=== PATIENT | female | born 1955 | race Caucasian/White ===

== ENCOUNTER 2020-11-15 05:52 | Day surgery (SDC) | payer BC ==
[2020-11-15] MEDS ORDERED: Lactated Ringers 1,000 ML IV SCH (06:30)
[2020-11-15] MEDS ORDERED: DIPRIVAN 200 MG/20 ML IV ONE ×3 (07:32→07:55)
[2020-11-15 08:46] VITALS: PULSE 61
[2020-11-15 09:19] VITALS: BP 121/51; O2SAT 98
--- NOTE | 2020-11-15 10:36 | OP ---
SURGERY DATE: 11/15/2020 SURGERY TIME: 729 PREOPERATIVE DIAGNOSIS: 1. PERSISTENT GASTROESOPHAGEAL REFLUX DISEASE. 2. SCREENING COLON. POSTOPERATIVE DIAGNOSIS: 1. GASTRIC POLYPS. 2. RECTAL POLYPS X 2. PROCEDURE: 1. EGD. 2. Colonoscopy. SPECIMENS: 1. Two cold forceps gastric polypectomies. 2. One hot forceps rectal polypectomy and one cold forceps rectal polypectomy. ESTIMATED BLOOD LOSS: Minimal. SURGEON: Dr. Fabio Ibrahim. ANESTHESIA: MAC by Noah Mathis CRNA. DESCRIPTION OF PROCEDURE: After informed written consent was obtained, the patient was taken to the endoscopy suite. She was placed in the left lateral decubitus position. A bite block was inserted. Anesthesia was titrated to the desired level of consciousness. The endoscope was inserted in the posterior oropharynx. Under direct visualization, the esophagus was easily traversed. The gastroesophageal junction had a normal mucosal appearance free of any lesions or defects. Upon entry into the stomach, there was normal rugated gastric mucosa with multiple fundic gland polyps. The pylorus was traversed and the 1st and 2nd portions of the duodenum were within normal limits. No ulcerations or abnormalities. Two account development representative fundic gland polyps were sampled with cold forceps and sent for pathology. There was no active bleeding following removal. The remainder of exam was within normal limits upon withdrawal. The scope was removed and the scopes were switched. Digital rectal exam showed normal sphincter tone and no internal lesions. The scope was inserted in the rectum and sequentially the entire colonic mucosa was traversed. The level of the cecum was reached and verified with direct visualization of the ileocecal valve. Upon withdrawal, careful mucosal inspection was performed. There was liquid stool throughout multiple portions of the colon limiting view somewhat. Prep was fairly poor. Prior to withdrawal, there were 2 sessile polyps, one very small in the rectal region which was grasped with the forceps and removed in its entirety. One slightly larger seen on retroflexion in the distal rectal area which was grasped with the forceps, cauterized with electrocautery, and removed. The entire lesion appeared to be removed. Was hemostatic following removal. The scope was removed. The patient was transferred to the recovery room in excellent condition. I have advised she hold her aspirin for the next week and follow-up in a week for pathology reports.
== END 2020-11-15 09:15 | disposition home or self-care (01) ==
LOC: SDC 05:52
PROVIDERS: ATTEND Family Medicine
DX: Z12.11 Encounter for screening for malignant neoplasm of colon (principal); K21.9 Gastro-esophageal reflux disease without esophagitis; K31.7 Polyp of stomach and duodenum; D12.8 Benign neoplasm of rectum
CPT/HCPCS: 88305; J2704

== ENCOUNTER 2024-01-28 17:00 | Emergency (ER) | payer MEDICARE ==
[2024-01-28 18:31] VITALS: PULSE 54; TEMP 97.6; O2SAT 99
--- NOTE | 2024-01-28 19:02 | ERPHSYRPT ---
- History of Present Illness Time Seen by Provider: 01/28/24 17:03 Source: patient Exam Limitations: no limitations Patient Subjective Stated Complaint: pt cut her 3rd finger of her left hand on the fingerprint Triage Nursing Assessment: Pt brought to the ER by her , hypertensive, bradycardic, rates pain as 1/10, 1 cm laceration to the distal end of the 3rd finger of the left hand, actively bleeding, pulses normal, skin n/w/d, denies any other injuries Physician History: 68 years old female with a history of hypertension, diabetes mellitus [id number] presented in the ER with a laceration to the left third digit distal phalanx prior to arrival while doing dishes and came across a sharp edge. Patient reports minimal pain but oozing of blood without spurting. No numbness or tingling distally. Unsure about tetanus status. 1.25 cm superficial laceration left third digit distal phalanx palmar aspect just distal to distal interphalangeal joint. Minimal oozing. Distal neurovascular intact. No injury to the nail. Do not think patient needs imaging as it was a superficial cut and no bony injury. Tetanus is updated Laceration is repaired with 3 interrupted sutures. Tube gauze dressing applied. Recommended Tylenol and outpatient follow-up. Discussed wound care and signs symptoms of worsening needing return to ER which she seems understanding. Stable for discharge. Allergies/Adverse Reactions: dicyclomine Allergy (Severe, Verified 01/28/24 18:31) Rash tetracycline Allergy (Severe, Verified 01/28/24 18:31) Rash Home Medications: Carvedilol 3.125 mg [Coreg 3.125 MG] 3.125 mg PO DAILY 11/13/20 [History] Cetirizine HCl [Zyrtec] 10 mg PO DAILY 11/13/20 [History] Lovastatin 40 mg PO DAILY 11/13/20 [History] Metformin HCl [Metformin ER Osmotic] 1,000 mg PO DAILY 11/13/20 [History] Sertraline HCl 50 mg [Zoloft 50 mg Tablet] 50 mg PO DAILY 11/13/20 [History] hydroCHLOROthiazide [Hydrochlorothiazide] 12.5 mg PO DAILY 11/13/20 [History] Famotidine 40 mg PO BID 01/28/24 [History] lisinopriL [Zestril] 5 mg PO DAILY 01/28/24 [History] Hx Tetanus, Diphtheria Vaccination/Date Given: No Hx Influenza Vaccination/Date Given: No Hx Pneumococcal Vaccination/Date Given: Yes Travel Risk - International Travel Have you traveled outside of the country in past 3 weeks: No - Emerging Infectious Disease Are you exhibiting symptoms associated with any current EIDs: No - Review of Systems Constitutional: No Symptoms Respiratory: No Symptoms Cardiac: No Symptoms Abdominal/Gastrointestinal: No Symptoms Musculoskeletal: Injury Skin: Skin Lesions Neurological: No Symptoms - Past Medical History Pertinent Past Medical History: Yes Neurological History: No Pertinent History ENT History: No Pertinent History Cardiac History: Hypertension Respiratory History: No Pertinent History Endocrine Medical History: Diabetes Type II Musculoskeletal History: Osteoarthritis GI Medical History: GERD History: No Pertinent History Psycho-Social History: Depression Female Reproductive Disorders: No Pertinent History Other Medical History: BACK SURGERY IN 1994, KIDNEY PROBLEMS DUE TO PROLONGED IBUPROFEN USE. NOW KIDNEY FUNCTION IS NORMAL. - Past Surgical History Past Surgical History: Yes Neuro Surgical History: No Pertinent History Cardiac: No Pertinent History Respiratory: No Pertinent History Gastrointestinal: No Pertinent History Genitourinary: No Pertinent History Musculoskeletal: Other Female Surgical History: Dilation & Curettage Other Surgical History: back surgery,colonoscopy,egd - Social History Smoking Status: Never smoker Exposure to second hand smoke: No Drug Use: none - Social Determinants of Health Will the patient participate in the screening: Yes Do you worry about a steady place to live?: No Do you have any problems with any of the following?: No known problems In the past 12 months,have you had to go without utilities?: No Transportation Issues: No Has anyone in your support network made you feel unsafe?: No Have you or anyone in your house had to go without enough: No - Nursing Vital Signs Nursing Vital Signs: Initial Vital Signs Temperature 97.6 F 01/28/24 18:22 Pulse Rate 54 L 01/28/24 18:22 Blood Pressure 157/74 01/28/24 18:22 O2 Sat by Pulse Oximetry 99 01/28/24 18:22 Pain Scale Pain Intensity 1 - Physical Exam General Appearance: no apparent distress Eye Exam: PERRL/EOMI Neck Exam: normal inspection, full range of motion Respiratory Exam: normal breath sounds, lungs clear Cardiovascular Exam: regular rate/rhythm, normal heart sounds Extremity Exam: normal range of motion, lacerations (1.25 cm laceration left third digit distal phalanx with minimal oozing and no spurting.), tenderness Neurologic Exam: alert, oriented x 3, cooperative, normal mood/affect, sensation nml, No motor deficits Skin Exam: normal color SpO2 Interpretation: normal SpO2: 99 O2 Delivery: Room Air Procedures - Laceration/Wound Repair Left Anterior Distal Volar Finger Time of Procedure: 19:01 Wound Location: Left, hand Wound Length (cm): 1.25 Wound's Depth, Shape: superficial, linear Wound Explored: clean Irrigated: Yes Hibiclens Prep: Yes Anesthesia: 1% Lidocaine Volume Anesthetic (ccs): 2 Wound Repaired With: sutures Suture Size/Type: 4-0, ethilon Number of Sutures: 3 Splint Applied?: Yes Type of Splint Applied: Tube gauze - Progress Progress: improved Progress Note: 01/28/24 19:01 68 years old female with a history of hypertension, diabetes mellitus [id number] presented in the ER with a laceration to the left third digit distal phalanx prior to arrival while doing dishes and came across a sharp edge. Patient reports minimal pain but oozing of blood without spurting. No numbness or tingling distally. Unsure about tetanus status. 1.25 cm superficial laceration left third digit distal phalanx palmar aspect just distal to distal interphalangeal joint. Minimal oozing. Distal neurovascular intact. No injury to the nail. Do not think patient needs imaging as it was a superficial cut and no bony injury. Tetanus is updated Laceration is repaired with 3 interrupted sutures. Tube gauze dressing applied. Recommended Tylenol and outpatient follow-up. Discussed wound care and signs symptoms of worsening needing return to ER which she seems understanding. Stable for discharge. Counseled pt/family regarding: diagnosis, need for follow-up Medical Desision Making - Diagnostic Testing Diagnostic test were ordered, analyzed, and reviewed by me: No - Risk of complications The pt has a mod risk of morbidity or mortality based on: Need for prescription drug management, Need for minor surgical intervention in patient with know risk factors - Departure Departure Disposition: Home Clinical Impression: Finger laceration Condition: Stable Critical Care Time: No Referrals: JAY FRENCH NP [Primary Care Provider] - Follow up with PCP 1 day Instructions: Laceration Repair With Stitches (DC) Additional Instructions: Take Tylenol as needed. Keep it clean and dry. Elevations, follow-up with primary care for reevaluation. Return to ER for increasing pain swelling redness discharge or if develop fever chills etc. Suture removal in 14 days
[2024-01-28 19:04] VITALS: BP 160/76
[2024-01-28] MEDS ORDERED: Adacel Vial IM ONE (19:11)
[2024-01-28] MEDS: Adacel Vial IM ONE (19:13)
== END 2024-01-28 19:22 | disposition home or self-care (01) ==
LOC: ED 17:00
DX: S61.213A Laceration without foreign body of left middle finger without damage to nail, initial encounter (principal); W26.9XXA Contact with unspecified sharp object(s), initial encounter; Y93.G1 Activity, food preparation and clean up
CPT/HCPCS: 12001; 90471; 90715; 99282; 99283